=== PATIENT | female | born 1995 | race Caucasian/White ===

== ENCOUNTER → 2021-04-20 | Outpatient (CLI) | payer MEDICAID, OTHER ==
[~2021-04-20] MED LIST: BUPR-86 PO; Melatonin PO
[2021-04-20 10:03] LABS: BASOPHILS % (AUTO) 1 % (0-1); EOSINOPHILS % (AUTO) 2 % (1-7); LYMPHOCYTES % (AUTO) 26 % (22-44); MEAN CORPUSCULAR HEMOGLOBIN 30.9 pg (27.0-34.8); MEAN CORPUSCULAR HGB CONC 34.3 g/dL (32.4-35.8); MEAN PLATELET VOLUME 10.3 fL (7.4-10.4); MONOCYTES % (AUTO) 8 % (2-9); NEUTROPHILS % (AUTO) 64 % (42-75); PLATELET COUNT 215 x10^3/uL (130-400); RED BLOOD COUNT 4.85 x10^6/uL (3.82-5.3); RED CELL DISTRIBUTION WIDTH 13.1 % (9.6-15.2)
[2021-04-20 10:07] LABS: ALANINE AMINOTRANSFERASE 17 U/L (12-78); ANION GAP 7 mmol/L (5-15); CALCIUM 9.6 mg/dL (8.5-10.1); CHLORIDE 108 mmol/L (98-107); CREATININE 0.67 mg/dL (0.55-1.02); INTERNATIONAL NORMALIZED RATIO 1.07 (0.93-1.1); PROTHROMBIN TIME 11.4 Seconds (9.6-11.5)
[2021-04-20 10:11] LABS: ALKALINE PHOSPHATASE 52 U/L (45-117); BILIRUBIN,TOTAL 0.4 mg/dL (0.2-1.0); TOTAL PROTEIN 8.3 g/dL (6.4-8.2)
== END | disposition home or self-care (01) ==
LOC: STAR 09:11
PROVIDERS: ATTEND Specialist
DX: Z01.812 Encounter for preprocedural laboratory examination (principal); C53.9 Malignant neoplasm of cervix uteri, unspecified; R87.613 High grade squamous intraepithelial lesion on cytologic smear of cervix (HGSIL); R87.810 Cervical high risk human papillomavirus (HPV) DNA test positive; Z20.822 Contact with and (suspected) exposure to COVID-19
CPT/HCPCS: 36415; 80053; 84703; 85025; 85610; 85730; U0003; U0005

== ENCOUNTER 2021-04-24 08:24 | Day surgery (SDC) | payer MEDICAID, OTHER ==
[~2021-04-24] VITALS: Ht 170.2 cm; Wt 62.9 kg
[2021-04-24 08:40] VITALS: BP 120/75
[2021-04-24] MEDS ORDERED: CHLORHEXIDINE 15 ML UDC ONE (08:46)
[2021-04-24 08:55] LABS: HCG UR SG 1.025 (1.003-1.030)
[2021-04-24] MEDS ORDERED: CHLORHEXIDINE 15 ML UDC PO ONE (09:00)
[2021-04-24] MEDS ORDERED: LACTATED RINGERS 1,000 ML IV SCH (09:00)
[2021-04-24] MEDS ORDERED: MIDAZOLAM 1 MG/ML, 2ML ONE (09:22)
[2021-04-24] MEDS ORDERED: FENTANYL PF 100 MCG/2ML ONE ×2 (09:22→10:54)
[2021-04-24] MEDS ORDERED: DEXAMETHASONE 4 MG/ML, 1ML ONE (09:27)
[2021-04-24] MEDS ORDERED: PROPOFOL 10 MG/ML, 20ML ONE (09:27)
[2021-04-24] MEDS ORDERED: ONDANSETRON 2MG/ML, 2ML ONE (09:27)
[2021-04-24] MEDS ORDERED: VASOPRESSIN 20 UNIT/ML, 1ML ONE (09:47)
[2021-04-24] MEDS ORDERED: LIDOCAINE-MPF 2% ,5ML INFIL ONE (09:55)
[2021-04-24] MEDS ORDERED: KETOROLAC 30 MG/1 ML IV PRN (10:00)
[2021-04-24] MEDS ORDERED: LABETALOL 5MG/ML, 20ML IV PRN (10:00)
[2021-04-24] MEDS ORDERED: DIAZEPAM 5 MG/ML, 2ML IVPush PRN (10:00)
[2021-04-24] MEDS ORDERED: hydrALAzine 20 MG/ML, 1ML IV PRN (10:00)
[2021-04-24] MEDS ORDERED: ACETAMINOPHEN 325 MG TABLET PO PRN (10:00)
[2021-04-24] MEDS ORDERED: ALBUTEROL SULFATE 2.5 MG/3 ML NPPB PRN (10:00)
[2021-04-24] MEDS ORDERED: OXYcodone 5 MG/5 ML ORAL.SOL UDC PO PRN (10:00)
[2021-04-24] MEDS ORDERED: FENTANYL PF 100 MCG/2ML IV PRN (10:00)
[2021-04-24] MEDS ORDERED: PROMETHAZINE 25 MG/ML, 1ML IV PRN (10:00)
[2021-04-24] MEDS ORDERED: HYDROmorphone 2 MG/ML, 1ML IVPush PRN (10:00)
[2021-04-24] MEDS ORDERED: MEPERIDINE/PF 25MG/0.5ML IVPush PRN (10:00)
[2021-04-24] MEDS ORDERED: KETOROLAC 30 MG/1 ML ONE (10:43)
[2021-04-24] MEDS ORDERED: MEPERIDINE/PF 25MG/ML,1ML ONE (11:01)
== END 2021-04-24 12:15 | disposition home or self-care (01) ==
LOC: OUT 08:24
PROVIDERS: ATTEND Specialist
DX: C53.0 Malignant neoplasm of endocervix (principal); Z98.890 Other specified postprocedural states; Z80.1 Family history of malignant neoplasm of trachea, bronchus and lung; Z79.899 Other long term (current) drug therapy
CPT/HCPCS: 57520; 81025; 88305; 88307; J1100; J1885; J2175; J2250; J2405; J2704; J3010; J7120

== ENCOUNTER 2021-06-24 13:11 | Outpatient (CLI) | payer MEDICAID ==
[2021-06-24 13:54] LABS: BASOPHILS % (AUTO) 1 % (0-1); EOSINOPHILS % (AUTO) 2 % (1-7); LYMPHOCYTES % (AUTO) 28 % (22-44); MEAN CORPUSCULAR HEMOGLOBIN 30.1 pg (27.0-34.8); MEAN CORPUSCULAR HGB CONC 34.2 g/dL (32.4-35.8); MONOCYTES % (AUTO) 9 % (2-9); NEUTROPHILS % (AUTO) 61 % (42-75); PLATELET COUNT 228 x10^3/uL (130-400); RED BLOOD COUNT 4.93 x10^6/uL (3.82-5.3); RED CELL DISTRIBUTION WIDTH 12.5 % (9.6-15.2)
[2021-06-24 14:04] LABS: ALBUMIN 3.9 g/dL (3.4-5.0); ANION GAP 5 mmol/L (5-15); CALCIUM 9.1 mg/dL (8.5-10.1); CHLORIDE 107 mmol/L (98-107); INTERNATIONAL NORMALIZED RATIO 1.06 (0.93-1.1); PROTHROMBIN TIME 11.3 Seconds (9.6-11.5)
[2021-06-24 14:12] LABS: ALANINE AMINOTRANSFERASE 13 U/L (12-78); ALKALINE PHOSPHATASE 52 U/L (45-117); BILIRUBIN,TOTAL 0.4 mg/dL (0.2-1.0); CREATININE 0.62 mg/dL (0.55-1.02); TOTAL PROTEIN 8.6 g/dL (6.4-8.2)
== END 2021-06-24 23:59 | disposition home or self-care (01) ==
LOC: STAR 13:11
PROVIDERS: ATTEND Specialist
DX: Z01.812 Encounter for preprocedural laboratory examination (principal); Z20.822 Contact with and (suspected) exposure to COVID-19; C53.9 Malignant neoplasm of cervix uteri, unspecified; R87.613 High grade squamous intraepithelial lesion on cytologic smear of cervix (HGSIL); R87.810 Cervical high risk human papillomavirus (HPV) DNA test positive
CPT/HCPCS: 36415; 80053; 84703; 85025; 85610; 85730; 86304; U0003; U0005

== ENCOUNTER 2021-06-30 07:07 | Day surgery (SDC) | payer MEDICAID ==
[~2021-06-30] VITALS: Ht 170.2 cm; Wt 60.3 kg
[~2021-06-30 07:07] MED LIST changes: +BUPIVACAINE/PF-EPI 0.25% 1:200K ONE; +HEPARIN 1,000 UNITS/ML, 10ML ONE
[2021-06-30] MEDS ORDERED: CEFOTETAN PMX 2GM/50ML 50 ML IVPB ONE (07:30)
[2021-06-30] MEDS ORDERED: CHLORHEXIDINE 15 ML UDC PO ONE (07:30)
[2021-06-30] MEDS ORDERED: LACTATED RINGERS 1,000 ML IV SCH (07:30)
[2021-06-30 07:37] VITALS: BP 137/77
[2021-06-30 07:50] LABS: HCG UR SG 1.033 (1.003-1.030)
[2021-06-30] MEDS ORDERED: MIDAZOLAM 1 MG/ML, 2ML ONE (08:24)
[2021-06-30] MEDS ORDERED: FENTANYL PF 250 MCG/5ML ONE (08:25)
[2021-06-30] MEDS ORDERED: PROPOFOL 10 MG/ML, 20ML ONE (08:26)
[2021-06-30] MEDS ORDERED: ROCURONIUM 10MG/ML,5ML ONE (08:26)
[2021-06-30] MEDS ORDERED: OXYcodone 5 MG/5 ML ORAL.SOL UDC PO PRN (09:00)
[2021-06-30] MEDS ORDERED: LABETALOL 5MG/ML, 20ML IV PRN (09:00)
[2021-06-30] MEDS ORDERED: PROMETHAZINE 25 MG/ML, 1ML IVPush PRN (09:00)
[2021-06-30] MEDS ORDERED: HYDROmorphone 1 MG/ML, 1ML INJ IVPush PRN (09:00)
[2021-06-30] MEDS ORDERED: hydrALAzine 20 MG/ML, 1ML IV PRN (09:00)
[2021-06-30] MEDS ORDERED: MEPERIDINE/PF 25MG/0.5ML IVPush PRN (09:00)
[2021-06-30] MEDS ORDERED: ONDANSETRON 2MG/ML, 2ML IVPush PRN (09:00)
[2021-06-30] MEDS ORDERED: FENTANYL PF 100 MCG/2ML IV PRN (09:00)
[2021-06-30] MEDS ORDERED: ACETAMINOPHEN 325 MG TABLET PO PRN (09:00)
[2021-06-30] MEDS ORDERED: DEXAMETHASONE 4 MG/ML, 1ML ONE ×2 (10:17)
[2021-06-30] MEDS ORDERED: ONDANSETRON 2MG/ML, 2ML ONE ×2 (10:17→12:34)
[2021-06-30] MEDS ORDERED: KETOROLAC 30 MG/1 ML ONE ×2 (10:17→14:19)
[2021-06-30] MEDS ORDERED: INTERCEED 3 X 4 INCH DRESSING ONE (11:05)
[2021-06-30] MEDS ORDERED: INDOCYANINE GREEN 25 MG VIAL ONE (11:05)
[2021-06-30] MEDS: LORazepam 2 MG/ML, 1ML IVPush PRN ×2 (12:03→12:13)
[2021-06-30] MEDS ORDERED: LORazepam 2 MG/ML, 1ML ONE (12:03)
[2021-06-30] MEDS ORDERED: FENTANYL PF 100 MCG/2ML ONE (12:04)
[2021-06-30] MEDS ORDERED: OXYcodone 5 MG/5 ML ORAL.SOL UDC ONE (12:13)
[2021-06-30] MEDS ORDERED: KETOROLAC 30 MG/1 ML IVPush ONE (14:30)
== END 2021-06-30 16:25 | disposition home or self-care (01) ==
LOC: OUT 07:07
PROVIDERS: ATTEND Specialist
DX: C53.9 Malignant neoplasm of cervix uteri, unspecified (principal); N87.9 Dysplasia of cervix uteri, unspecified; N83.202 Unspecified ovarian cyst, left side; F17.210 Nicotine dependence, cigarettes, uncomplicated; Z79.899 Other long term (current) drug therapy
CPT/HCPCS: 36415; 38570; 58552; 58662; 81025; 86850; 86900; 86923; 88112; 88305; 88307; 88309; C1765; J1100; J1644; J1885; J2060; J2250; J2405; J2704; J3010; J7120; S2900